=== PATIENT | female | born 1960 | race Caucasian/White ===

== ENCOUNTER → 2019-04-27 | Day surgery (SDC) | payer BC ==
[~2019-04-27] MED LIST: Benzocaine 20% Topical Spray UD MUCMEM ONE; Dextrose 5%-0.45% NaCl 1,000 ML IV SCH; Midazolam 1 MG/ML 2 ML SDV IV ONE; Midazolam 1 MG/ML 2 ML SDV ONE; fentaNYL 100 MCG/2 ML SDV IV ONE; fentaNYL 100 MCG/2 ML SDV ONE
--- NOTE | 2019-04-27 15:41 | OR ---
DATE: 04/27/2019 PREOPERATIVE DIAGNOSES: Nausea, vomiting, postprandial epigastric abdominal pain with diarrhea. POSTOPERATIVE DIAGNOSES: Nausea, vomiting, postprandial epigastric abdominal pain with diarrhea. PROCEDURE: Esophagogastroduodenoscopy with biopsy for H pylori and permanent section. ANESTHESIA: Conscious sedation with IV Versed and fentanyl. SPECIMEN: Gastric prepyloric biopsy. OPERATIVE FINDINGS: Mild gastritis in the prepyloric area. Otherwise, esophagus and duodenum are normal. RECOMMENDATION: Pending on biopsy. PROCEDURE IN DETAIL: After adequate preparation, the gastroscope was inserted into the esophagus. This was passed down to the EG junction. She has some mild eversion of the gastric mucosa, but no true hiatal hernia. No evidence of distal esophagitis or bleeding sites. The scope was advanced into the stomach. Both forward and retroflexed views are done. In the prepyloric area, there are some gastritis appearing streaks extending down to the pylorus. 1 random biopsy was taken for evaluation for H pylori and another 2 by biopsies were done for permanent section. The scope was advanced through the pylorus, the duodenum in the first and second parts normal. Air was suctioned from the stomach, and the scope removed. [facility] /[id number]
--- NOTE | 2019-04-27 16:33 | OR ---
DATE: 04/27/2019 PREOPERATIVE DIAGNOSIS: Chronic diarrhea. POSTOPERATIVE DIAGNOSIS: Chronic diarrhea. PROCEDURE PERFORMED: Total colonoscopy with random biopsy. ANESTHESIA: Conscious sedation with IV Versed and fentanyl. SPECIMEN: Biopsy of cecum, transverse colon, sigmoid colon, and rectum. OPERATIVE FINDINGS: Normal colonoscopy. INDICATION FOR PROCEDURE: This 58-year-old female has the postprandial abdominal pain and nausea and vomiting. She also has chronic diarrhea and states she has watery diarrhea. PROCEDURE IN DETAIL: After adequate preparation, a colonoscope was inserted into the rectum this was easily passed all the way to the cecum. Confirmation of the cecum was made by visualization of the ileocecal valve and palpation in the right lower quadrant. The bowel prep was excellent. On withdrawal of the scope, no abnormalities were noted. One biopsy each was taken in the cecum, mid transverse colon, mid sigmoid, and mid rectum. Air was suctioned from the colon and the scope removed. [facility] /[id number]
== END ==
LOC: DL.ENDO 08:30
PROVIDERS: ATTEND Surgery
DX: K52.9 Noninfective gastroenteritis and colitis, unspecified (principal); K31.89 Other diseases of stomach and duodenum; K21.9 Gastro-esophageal reflux disease without esophagitis
CPT/HCPCS: 43239; 45380; 87077; A9270; J2250; J3010; J7042

== ENCOUNTER 2020-09-22 04:08 | Emergency (ER) | payer MEDICARE, OTHER ==
[2020-09-21 23:29] LABS: ANION GAP 15.8 mEq/L (7-13); CHLORIDE,CL 100 mmol/L (98-107); SODIUM,NA 137 mmol/L (136-145)
--- NOTE | 2020-09-21 23:42 | EDM.PDOC ---
"ED HPI GENERAL MEDICAL PROBLEM - General Chief Complaint: Abdominal Pain Stated Complaint: BY AMBULANCE Time Seen by Provider: 09/21/20 23:30 Source of Information: Reports: Patient History Limitations: Reports: No Limitations - History of Present Illness INITIAL COMMENTS - FREE TEXT/NARRATIVE: This 60 yo female patient was brought to the ED by [facility] due to abdominal pain and nausea/vomiting. 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 The patient reports her pain increased today and she started to have nausea and vomiting. 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: Other Medication(s) (Fentanyl by ems) - Related Data Allergies Allergy/AdvReac Type Severity Reaction Status Date / Time amoxicillin [Amoxicillin] Allergy Intermediate Hives Verified 04/27/19 08:51 morphine Allergy Intermediate UNKNOWN Verified 04/27/19 08:51 ampicillin Allergy Unknown UNKNOWN Verified 04/27/19 08:51 aspirin Allergy Unknown UNKNOWN Verified 04/27/19 08:51 cefaclor [Cefaclor] Allergy Unknown UNKNOWN Verified 04/27/19 08:51 cephalexin [Cephalexin] Allergy Unknown UNKNOWN Verified 04/27/19 08:51 diphenhydramine HCl Allergy Unknown UNKNOWN Verified 04/27/19 08:51 [From Benadryl] erythromycin base Allergy Unknown UNKNOWN Verified 04/27/19 08:51 [Erythromycin Base] ibuprofen Allergy Unknown UNKNOWN Verified 04/27/19 08:51 ketorolac tromethamine Allergy Unknown UNKNOWN Verified 04/27/19 08:51 [From Toradol] nitrofurantoin Allergy Unknown UNKNOWN Verified 04/27/19 08:51 Home Meds: Home Meds Albuterol/Ipratropium [Combivent] 2 puff INH .PRN PRN 07/12/13 [History] Calc/D3/Mag/Zn/Jackie/[place] [Calcium 600 MG Plus Vit D] 1 each PO DAILY 07/12/13 [History] Cyclobenzaprine [Flexeril] 10 mg PO BEDTIME 07/12/13 [History] Dexlansoprazole [Dexilant] 60 mg PO DAILY 07/12/13 [History] Estrogen,Con/M-Progest Acet [Premphase 0.625-5 MG] 1 tab PO DAILY 07/12/13 [History] Hydrocodone/Acetaminophen [[place] 10-325 Tablet] 10 - 325 mg PO BEDTIME PRN 07/12/13 [History] Ketorolac Tromethamine 10 mg PO DAILY 07/12/13 [History] Mometasone Furoate [Asmanex 220 MCG] 1 puff INH DAILY 07/12/13 [History] Promethazine [Phenergan] 50 mg PO DAILY PRN 07/12/13 [History] Vitamin B Complex [B Complex] 1 each PO DAILY 07/12/13 [History] amLODIPine Besylate [Norvasc] 2.5 mg PO BEDTIME 07/12/13 [History] Sennosides/Docusate Sodium [Senna Plus Tablet] 1 each PO DAILY 03/07/19 [History] Escitalopram [Lexapro] 20 mg PO DAILY 04/24/19 [History] Gabapentin [Neurontin] 300 mg PO BEDTIME 04/24/19 [History] L Acidophil/B Lactis/B Longum [Florajen3] 1 tab PO BEDTIME 04/24/19 [History] Magnesium 250 mg PO DAILY 04/24/19 [History] Pseudoephedrine HCl [Sudafed] 30 mg PO DAILY 04/24/19 [History] Rosuvastatin [Crestor] 10 mg PO BEDTIME 04/24/19 [History] Aspirin [Halfprin] 81 mg PO DAILY 04/26/19 [History] Cholecalciferol (Vitamin D3) [Vitamin D3] 400 unit PO ASDIRECTED 04/26/19 [History] Potassium Chloride [Klor-Con 10] 10 meq PO DAILY 04/26/19 [History] Simvastatin [Zocor] 20 mg PO DAILY 04/26/19 [History] Sodium Chloride [Saline Nasal Mist] 1 spray NASBOTH ASDIRECTED 04/26/19 [History] methocarbamoL [Methocarbamol] 750 mg PO ASDIRECTED 04/26/19 [History] Past Medical History HEENT History: Reports: Allergic Rhinitis, Impaired Vision Cardiovascular History: Reports: High Cholesterol, Hypertension Respiratory History: Reports: COPD, Sleep Apnea, SOB Gastrointestinal History: Reports: Chronic Constipation, Chronic Diarrhea, Colon Polyp, Other (See Below) Other Gastrointestinal History: gastroenteritis Genitourinary History: Reports: Urinary Incontinence 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: Musculoskeletal History: Reports: Back Pain, Chronic Neurological History: Reports: Headaches, Chronic, Migraines Psychiatric History: Reports: Depression Endocrine/Metabolic History: Reports: Hypokalemia, Obesity/BMI 30+ Hematologic History: Reports: None Immunologic History: Reports: None Oncologic (Cancer) History: Reports: Other (See Below) Other Oncologic History: mass in abdomin Dermatologic History: Reports: None - Infectious Disease History Infectious Disease History: Reports: Chicken Pox - Past Surgical History Head Surgeries/Procedures: Reports: None HEENT Surgical History: Reports: Naso-Sinus Surgery Cardiovascular Surgical History: Reports: None Respiratory Surgical History: Reports: None GI Surgical History: Reports: Appendectomy, Colon, Colonoscopy Female Surgical History: Reports: Tubal Ligation Endocrine Surgical History: Reports: None Neurological Surgical History: Reports: C-Spine, Lumbar Spine, Other (See Below) Other Neurological Surgeries/Procedures: implanted spinal cord stimulator 2019 Musculoskeletal Surgical History: Reports: Other (See Below) Other Musculoskeletal Surgeries/Procedures:: back surgery. neck surgery. STIMULATOR IMPLANT Dermatological Surgical History: Reports: None Social & Family History - Family History Family Medical History: Unobtainable - Tobacco Use Tobacco Use Status *Q: Current Every Day Tobacco User Years of Tobacco use: 40 Packs/Tins Daily: 0.5 - Caffeine Use Caffeine Use: Reports: Coffee Other Caffeine Use: 1 CUP COFFEE, 2 SODA POPS - Recreational Drug Use Recreational Drug Use: No ED ROS GENERAL - Review of Systems Review Of Systems: Comprehensive ROS is negative, except as noted in HPI. ED EXAM, GI/ABD - Physical Exam Exam: See Below Exam Limited By: No Limitations General Appearance: Alert, WD/WN, Moderate Distress Eyes: Bilateral: Normal Appearance, EOMI Ears: Normal External Exam, Normal Canal, Hearing Grossly Normal, Normal TMs Nose: Normal Inspection, Normal Mucosa, No Blood Throat/Mouth: Normal Inspection, Normal Lips, Normal Teeth, Normal Gums, Normal Oropharynx, Normal Voice, No Airway Compromise Head: Atraumatic, Normocephalic Neck: Normal Inspection, Supple, Non-Tender, Full Range of Motion Respiratory/Chest: No Respiratory Distress, Lungs Clear, Normal Breath Sounds, No Accessory Muscle Use, Chest Non-Tender Cardiovascular: Normal Peripheral Pulses, Regular Rate, Rhythm, No Edema, No Gallop, No JVD, No Murmur, No Rub GI/Abdominal Exam: Guarding, Tender (diffuse) (Female) Exam: Deferred Rectal (Female) Exam: Deferred Back Exam: Normal Inspection, Full Range of Motion, NT Extremities: Normal Inspection, Normal Range of Motion, Non-Tender, Normal Capillary Refill, No Pedal Edema Neurological: Alert, Oriented, CN II-XII Intact, Normal Cognition, Normal Gait, Normal Reflexes, No Motor/Sensory Deficits Psychiatric: Normal Affect, Normal Mood Skin Exam: Warm, Dry, Intact, Normal Color, No Rash Lymphatic: No Adenopathy Course - Vital Signs Last Recorded V/S: Last Vital Signs Temp 98.8 F 09/21/20 23:04 Pulse 95 09/21/20 23:04 Resp 18 09/21/20 23:04 BP 144/60 H 09/21/20 23:04 Pulse Ox - Orders/Labs/Meds Labs: Laboratory Tests 09/21/20 09/21/20 09/21/20 Range/Units 22:45 22:45 22:45 WBC 8.9 (5.0-10.0) 10^3/uL RBC 4.24 (4.2-5.4) 10^6/uL Hgb 12.6 D (12.0-16.0) g/dL Hct 37.5 (37.0-47.0) % MCV 88.4 D (80-100) fL MCH 29.7 (27.0-34.0) pg MCHC 33.6 (33.0-35.0) g/dL Plt Count 574 H D (150-450) 10^3/uL Neut % (Auto) 71.9 (42.2-75.2) % Lymph % (Auto) 19.8 L (20.5-50.1) % [place] % (Auto) 8.1 H (2-8) % Eos % (Auto) 0.1 L (1.0-3.0) % Baso % (Auto) 0.1 (0.0-1.0) % Sodium 137 (136-145) mmol/L Potassium 3.8 (3.5-5.1) mmol/L Chloride 100 (98-107) mmol/L Carbon Dioxide 25 (21-32) mmol/L Anion Gap 15.8 H (7-13) mEq/L BUN 7 (7-18) mg/dL Creatinine 0.79 (0.55-1.02) mg/dL Est Cr Clr Drug Dosing 59.15 mL/min Estimated GFR (MDRD) > 60 BUN/Creatinine Ratio 8.9 (No establ ref range) Glucose 108 H (70-99) mg/dL Lactic Acid 1.1 (0.4-2.0) mmol/L Calcium 8.7 (8.5-10.1) mg/dL Total Bilirubin 0.3 (0.2-1.0) mg/dL AST 16 (15-37) U/L ALT 15 (14-59) U/L Alkaline Phosphatase 90 (46-116) U/L Total Protein 6.7 (6.4-8.2) g/dL Albumin 2.6 L (3.4-5.0) g/dL Globulin 4.1 Albumin/Globulin Ratio 0.63 Amylase 47 (25-115) U/L Lipase 31 L (73-393) U/L Urine Color (YELLOW) Urine Appearance (CLEAR) Urine pH (5.0-9.0) Ur Specific [place] (1.005-1.030) Urine Protein (NEGATIVE) Urine Glucose (UA) (NEGATIVE) Urine Ketones (NEGATIVE) Urine Occult Blood (NEGATIVE) Urine Nitrite (NEGATIVE) Urine Bilirubin (NEGATIVE) Urine Urobilinogen (0.2-1.0) mg/dL Ur Leukocyte Esterase (NEGATIVE) Urine RBC /HPF Urine WBC (0-5/HPF) /HPF Ur Epithelial Cells (NOT SEEN) /HPF Urine Bacteria (0-FEW/HPF) /HPF 09/22/20 Range/Units 01:01 WBC (5.0-10.0) 10^3/uL RBC (4.2-5.4) 10^6/uL Hgb (12.0-16.0) g/dL Hct (37.0-47.0) % MCV (80-100) fL MCH (27.0-34.0) pg MCHC (33.0-35.0) g/dL Plt Count (150-450) 10^3/uL Neut % (Auto) (42.2-75.2) % Lymph % (Auto) (20.5-50.1) % [place] % (Auto) (2-8) % Eos % (Auto) (1.0-3.0) % Baso % (Auto) (0.0-1.0) % Sodium (136-145) mmol/L Potassium (3.5-5.1) mmol/L Chloride (98-107) mmol/L Carbon Dioxide (21-32) mmol/L Anion Gap (7-13) mEq/L BUN (7-18) mg/dL Creatinine (0.55-1.02) mg/dL Est Cr Clr Drug Dosing mL/min Estimated GFR (MDRD) BUN/Creatinine Ratio (No establ ref range) Glucose (70-99) mg/dL Lactic Acid (0.4-2.0) mmol/L Calcium (8.5-10.1) mg/dL Total Bilirubin (0.2-1.0) mg/dL AST (15-37) U/L ALT (14-59) U/L Alkaline Phosphatase (46-116) U/L Total Protein (6.4-8.2) g/dL Albumin (3.4-5.0) g/dL Globulin Albumin/Globulin Ratio Amylase (25-115) U/L Lipase (73-393) U/L Urine Color Yellow (YELLOW) Urine Appearance Clear (CLEAR) Urine pH 7.0 (5.0-9.0) Ur Specific [place] 1.015 (1.005-1.030) Urine Protein Negative (NEGATIVE) Urine Glucose (UA) Negative (NEGATIVE) Urine Ketones Trace H (NEGATIVE) Urine Occult Blood Trace-intact H (NEGATIVE) Urine Nitrite Negative (NEGATIVE) Urine Bilirubin Negative (NEGATIVE) Urine Urobilinogen 0.2 (0.2-1.0) mg/dL Ur Leukocyte Esterase Negative (NEGATIVE) Urine RBC 0-5 /HPF Urine WBC 0-5 (0-5/HPF) /HPF Ur Epithelial Cells Moderate H (NOT SEEN) /HPF Urine Bacteria Moderate H (0-FEW/HPF) /HPF Meds: Medications Discontinued Medications Generic Name Dose Route Start Last Admin Trade Name Freq PRN Reason Stop Dose Admin Hydromorphone HCl 0.5 mg 09/22/20 02:27 09/22/20 02:36 Hydromorphone 0.5 Mg/0.5 Ml Syringe IVPUSH 09/22/20 02:28 0.5 mg ONETIME ONE Administration Iopamidol 100 ml 09/21/20 23:31 09/22/20 00:38 Iopamidol 612 Mg/Ml 100 Ml Bottle IVPUSH 09/21/20 23:32 100 ml ONETIME ONE Administration Metoclopramide HCl 10 mg 09/21/20 23:36 09/21/20 23:48 Metoclopramide 10 Mg/2 Ml Sdv IVPUSH 09/21/20 23:37 10 mg ONETIME ONE Administration - Re-Assessments/Exams Free Text/Narrative Re-Assessment/Exam: 09/22/20 02:46 [facility] [place] [facility] Final Radiology Report Call: [phone] assistance Online chat: [email or web address] Name: JARAD GUO Age: 60Years F Date: 09/22/2020 SSN: -- : [id number] Study: CT ABDOMEN PELVIS W CONT Requesting Physician: Han Braxton Images: [id number] Addl Studies: Provided Clinical History: abdominal pain Contrast: With Contrast Medium: [id number] Contrast Amount: 75 mL Contrast Method: Intravenous (IV) Page 1 of 2 PROCEDURE INFORMATION: Exam: CT Abdomen And Pelvis With Contrast Exam date and time: 09/22/2020 12:54 AM Age: 60 years old Clinical indication: Vomiting; Additional info: Abdominal pain TECHNIQUE: Imaging protocol: Computed tomography of the abdomen and pelvis with contrast. Radiation optimization: All CT scans at this facility use at least one of these dose optimization techniques: automated exposure control; mA and/or kV adjustment per patient size (includes targeted exams where dose is matched to clinical indication); or iterative reconstruction. Contrast material: [id number]; Contrast volume: 75 ml; Contrast route: INTRAVENOUS (IV); COMPARISON: CT Abdomen Pelvis w Cont 09/05/2020 3:31 PM FINDINGS: Liver: Normal. No mass. Gallbladder and bile ducts: Cholelithiasis. Pancreas: Normal. No ductal dilation. Spleen: Normal. No splenomegaly. Adrenal glands: Normal. No mass. Kidneys and ureters: postsurgical changes are noted in the left kidney versus cortical scarring similar to the prior study 2 mm nonobstructing stone lower pole right kidney Stomach and bowel: Severe acute diverticulitis with multiple Irasema diverticular abscesses worse than the prior study. There are several small abscesses now noted the largest in the left lower quadrant anteriorly measuring approximately 2.6 cm. Appendix: No evidence of appendicitis. Intraperitoneal space: Unremarkable. No free air. No significant fluid collection. JARAD GUO | Final Radiology Report CONFIDENTIALITY STATEMENT This report is intended only for use by the referring physician, and only in accordance with law. If you received this in error, call [phone]. Page 2 of 2 Vasculature: Bilateral common iliac artery stents in good position. Lymph nodes: Unremarkable. No enlarged lymph nodes. Urinary bladder: Severe left-sided bladder wall thickening most likely related to the acute diverticulitis in the left lower quadrant. Reproductive: Unremarkable as visualized. Bones/joints: Status post lumbar fusion from L3 through L5 Soft tissues: Unremarkable. IMPRESSION: 1. Cholelithiasis. 3. 2 mm nonobstructing stone lower pole right kidney 4. Bilateral common iliac artery stents in good position. 5. Severe acute diverticulitis with multiple Irasema diverticular abscesses worse than the prior study involving the sigmoid colon. There are several small abscesses now noted, the largest in the left lower quadrant anteriorly measuring approximately 2.6 cm. 6. Severe left-sided bladder wall thickening most likely related to the acute diverticulitis in the left lower quadrant. No evidence for air in the bladder Thank you for allowing us to participate in the care of your patient. Dictated and Authenticated by: eSrafin Geronimo MD 09/22/2020 2:31 AM Central Time ([place] & [place]) Free Text/Narrative Re-Assessment/Exam: 09/22/20 04:04 An initial call was placed to [facility] in [place] for transfer. [facility] advised that they did not have any beds available. A call was placed to Dr. Hilton to possibly admit the patient at [facility] in May until availability in [place]. Dr. Hilton recommended calling [place] for continued evaluation and management. A call was then placed to [facility] in [place]. Dr. Mays accepted the patient for continued evaluation and management. Departure - Departure Time of Disposition: 04:06 Disposition: DC/Tfer to Acute Hospital 02 Condition: Serious Clinical Impression: Acute diverticulitis of intestine - Discharge Information *PRESCRIPTION DRUG MONITORING PROGRAM REVIEWED*: Not Applicable *COPY OF PRESCRIPTION DRUG MONITORING REPORT IN PATIENT CONSUELO: Not Applicable Forms: Interfacility Transfer EMTALA Care Plan Goals: Discussed the patient history, examination, lab and CT results with Dr. Mays. Dr. Mays accepted the patient for continued evaluation and management as an inpatient at [facility]. The patient will be transported by [facility]. Sepsis Event Note (ED) - Evaluation Sepsis Screening Result: No Definite Risk - Focused Exam Vital Signs: Vital Signs Temp Pulse Resp BP 09/21/20 23:04 98.8 F 95 18 144/60 H"
--- NOTE | 2020-09-22 02:32 | CT ---
PROCEDURE INFORMATION: Exam: CT Abdomen And Pelvis With Contrast Exam date and time: 09/22/2020 12:54 AM Age: 60 years old Clinical indication: Vomiting; Additional info: Abdominal pain TECHNIQUE: Imaging protocol: Computed tomography of the abdomen and pelvis with contrast. Radiation optimization: All CT scans at this facility use at least one of these dose optimization techniques: automated exposure control; mA and/or kV adjustment per patient size (includes targeted exams where dose is matched to clinical indication); or iterative reconstruction. Contrast material: [id number]; Contrast volume: 75 ml; Contrast route: INTRAVENOUS (IV); COMPARISON: CT Abdomen Pelvis w Cont 09/05/2020 3:31 PM FINDINGS: Liver: Normal. No mass. Gallbladder and bile ducts: Cholelithiasis. Pancreas: Normal. No ductal dilation. Spleen: Normal. No splenomegaly. Adrenal glands: Normal. No mass. Kidneys and ureters: postsurgical changes are noted in the left kidney versus cortical scarring similar to the prior study 2 mm nonobstructing stone lower pole right kidney Stomach and bowel: Severe acute diverticulitis with multiple Irasema diverticular abscesses worse than the prior study. There are several small abscesses now noted the largest in the left lower quadrant anteriorly measuring approximately 2.6 cm. Appendix: No evidence of appendicitis. Intraperitoneal space: Unremarkable. No free air. No significant fluid collection. Vasculature: Bilateral common iliac artery stents in good position. Lymph nodes: Unremarkable. No enlarged lymph nodes. Urinary bladder: Severe left-sided bladder wall thickening most likely related to the acute diverticulitis in the left lower quadrant. Reproductive: Unremarkable as visualized. Bones/joints: Status post lumbar fusion from L3 through L5 Soft tissues: Unremarkable. IMPRESSION: 1. Cholelithiasis. 3. 2 mm nonobstructing stone lower pole right kidney 4. Bilateral common iliac artery stents in good position. 5. Severe acute diverticulitis with multiple Irasema diverticular abscesses worse than the prior study involving the sigmoid colon. There are several small abscesses now noted, the largest in the left lower quadrant anteriorly measuring approximately 2.6 cm. 6. Severe left-sided bladder wall thickening most likely related to the acute diverticulitis in the left lower quadrant. No evidence for air in the bladder
[2020-09-22] MEDS: HYDROmorphone 0.5 MG/0.5 ML Syringe IVPUSH ONE ×2 (02:36→04:36)
[~2020-09-22 04:08] MED LIST changes: -Benzocaine 20% Topical Spray UD MUCMEM ONE; +Ciprofloxacin in D5W 400 MG in Premix Bag 1 BAG IV ONE; -Dextrose 5%-0.45% NaCl 1,000 ML IV SCH; +Iopamidol 612 MG/ML 100 ML Bottle IVPUSH ONE; +Metoclopramide 10 MG/2 ML SDV IVPUSH ONE; -Midazolam 1 MG/ML 2 ML SDV IV ONE; -Midazolam 1 MG/ML 2 ML SDV ONE; -fentaNYL 100 MCG/2 ML SDV IV ONE; -fentaNYL 100 MCG/2 ML SDV ONE; +metroNIDAZOLE/Normal Saline 100 ML ONE; +metroNIDAZOLE/Normal Saline 500 MG in Premix Bag 100 BAG IV ONE
[2020-09-22] MEDS ORDERED: HYDROmorphone 0.5 MG/0.5 ML Syringe IVPUSH ONE (04:31)
== END 2020-09-22 04:41 ==
LOC: DL.ED 04:08
DX: K57.32 Diverticulitis of large intestine without perforation or abscess without bleeding (principal); E78.00 Pure hypercholesterolemia, unspecified; I10 Essential (primary) hypertension; J44.9 Chronic obstructive pulmonary disease, unspecified; E66.9 Obesity, unspecified; Z72.0 Tobacco use; Z68.22 Body mass index [BMI] 22.0-22.9, adult; Z88.0 Allergy status to penicillin; Z88.1 Allergy status to other antibiotic agents; Z88.5 Allergy status to narcotic agent; Z88.6 Allergy status to analgesic agent; Z79.899 Other long term (current) drug therapy; Z79.82 Long term (current) use of aspirin
CPT/HCPCS: 36415; 74177; 80053; 81001; 82150; 83605; 83690; 85025; 96365; 96368; 96375; 96376; 99284; 99285-25; J0744; J1170; J2765; J3490; Q9967

== ENCOUNTER 2022-06-18 14:48 | Emergency (ER) | payer MEDICARE, OTHER ==
[2022-06-18] MEDS: Ondansetron 4 MG/2 ML SDV IVPUSH ONE ×2 (15:21→16:34)
[2022-06-18] MEDS: Sodium Chloride 0.9% 10 ML Syringe FLUSH PRN (15:21)
[2022-06-18] MEDS: Sodium Chloride 0.9% 1,000 ML IV ONE (15:21)
[2022-06-18] MEDS: HYDROmorphone 0.5 MG/0.5 ML Syringe IVPUSH ONE (15:21)
[2022-06-18 15:56] LABS: ANION GAP 18.2 mEq/L (7-13)
== END 2022-06-18 16:36 | disposition home or self-care (01) ==
LOC: DL.ED 14:48
DX: K52.9 Noninfective gastroenteritis and colitis, unspecified (principal); E78.00 Pure hypercholesterolemia, unspecified; I10 Essential (primary) hypertension; J44.9 Chronic obstructive pulmonary disease, unspecified; I25.10 Atherosclerotic heart disease of native coronary artery without angina pectoris; E66.9 Obesity, unspecified; Z68.26 Body mass index [BMI] 26.0-26.9, adult; Z95.5 Presence of coronary angioplasty implant and graft; Z88.5 Allergy status to narcotic agent; Z79.01 Long term (current) use of anticoagulants; Z79.82 Long term (current) use of aspirin; Z79.51 Long term (current) use of inhaled steroids; Z79.899 Other long term (current) drug therapy; Z88.8 Allergy status to other drugs, medicaments and biological substances; Z88.1 Allergy status to other antibiotic agents; Z88.6 Allergy status to analgesic agent; Z88.0 Allergy status to penicillin
CPT/HCPCS: 36415; 80053; 83605; 83735; 84145; 84443; 84484; 85025; 86140; 93005; 93010; 96361; 96374; 96375; 96376; 99284; 99284-25; J1170; J2405; J3490; J7030

== ENCOUNTER 2022-07-03 01:20 | Emergency (ER) | payer MEDICARE, OTHER ==
[2022-07-03] MEDS ORDERED: Oxymetazoline 0.05% Nasal Spray 30 ML Bottle NAS ONE (01:41)
[2022-07-03] MEDS ORDERED: Silver Nitrate Applicator Each TOP ONE (01:41)
[2022-07-03] MEDS ORDERED: Tranexamic Acid 1,000 MG/10 ML Vial TOP ONE (02:01)
== END 2022-07-03 02:49 | disposition home or self-care (01) ==
LOC: DL.ED 01:20
DX: R04.0 Epistaxis (principal); J44.9 Chronic obstructive pulmonary disease, unspecified; I10 Essential (primary) hypertension; F17.210 Nicotine dependence, cigarettes, uncomplicated; E78.00 Pure hypercholesterolemia, unspecified; E66.9 Obesity, unspecified; Z68.30 Body mass index [BMI] 30.0-30.9, adult; Z88.0 Allergy status to penicillin; Z88.5 Allergy status to narcotic agent; Z88.1 Allergy status to other antibiotic agents; Z88.8 Allergy status to other drugs, medicaments and biological substances; Z79.82 Long term (current) use of aspirin; Z79.01 Long term (current) use of anticoagulants; Z79.899 Other long term (current) drug therapy
CPT/HCPCS: 30903; 99283; A9270; 99213; 99282; J3490

== ENCOUNTER 2023-12-12 15:51 | Emergency (ER) | payer MEDICARE ==
[2023-12-12] MEDS ORDERED: EPINEPHrine Nasal Soln 30 MG/30 ML Bottle NAS ONE (16:20)
[2023-12-12] MEDS: Oxymetazoline 0.05% Nasal Spray 30 ML Bottle NAS ONE (16:31)
== END 2023-12-12 17:33 | disposition home or self-care (01) ==
LOC: DL.ED 15:51
DX: R04.0 Epistaxis (principal); I10 Essential (primary) hypertension; E78.00 Pure hypercholesterolemia, unspecified; J44.9 Chronic obstructive pulmonary disease, unspecified; Z95.5 Presence of coronary angioplasty implant and graft; Z88.5 Allergy status to narcotic agent; Z88.1 Allergy status to other antibiotic agents; Z88.8 Allergy status to other drugs, medicaments and biological substances; Z88.6 Allergy status to analgesic agent; Z79.82 Long term (current) use of aspirin; Z79.899 Other long term (current) drug therapy; Z79.01 Long term (current) use of anticoagulants
CPT/HCPCS: 30901; 99283; A9270-GY

== ENCOUNTER 2024-01-03 14:33 | Emergency (ER) | payer MEDICARE ==
[2024-01-03] MEDS: Oxymetazoline 0.05% Nasal Spray 30 ML Bottle NAS ONE (14:55)
== END 2024-01-03 15:11 | disposition home or self-care (01) ==
LOC: DL.ED 14:33
DX: R04.0 Epistaxis (principal); E78.00 Pure hypercholesterolemia, unspecified; I10 Essential (primary) hypertension; J44.9 Chronic obstructive pulmonary disease, unspecified; E66.9 Obesity, unspecified; Z68.25 Body mass index [BMI] 25.0-25.9, adult; Z90.49 Acquired absence of other specified parts of digestive tract; Z95.5 Presence of coronary angioplasty implant and graft; Z79.82 Long term (current) use of aspirin; Z79.899 Other long term (current) drug therapy; Z88.1 Allergy status to other antibiotic agents; Z88.5 Allergy status to narcotic agent; Z88.0 Allergy status to penicillin; Z88.6 Allergy status to analgesic agent; Z88.8 Allergy status to other drugs, medicaments and biological substances; Z88.9 Allergy status to unspecified drugs, medicaments and biological substances
CPT/HCPCS: 99283; A9270-GY

== ENCOUNTER 2024-02-23 20:44 | Emergency (ER) | payer MEDICARE ==
[2024-02-23 22:22] LABS: BASOPHILS PERCENT AUTO 0.1 % (0.0-1.0); EOSINOPHILS PERCENT AUTO 0.5 % (1.0-3.0); HEMATOCRIT 41.8 % (37.0-47.0); HEMOGLOBIN 13.8 g/dL (12.0-16.0); LYMPHOCYTES PERCENT AUTO 20.1 % (20.5-50.1); MEAN CORPUSCULAR VOLUME 93.9 fL (80-100); MONOCYTES PERCENT AUTO 7.9 % (2-8); NEUTROPHILS PERCENT AUTO 71.4 % (42.2-75.2); PLATELET COUNT,PLT 310 10^3/uL (150-450); RED BLOOD CELL COUNT 4.45 10^6/uL (4.2-5.4); WHITE BLOOD CELL COUNT,WBC 18.7 10^3/uL (5.0-10.0)
[2024-02-23 22:25] LABS: APPEARANCE,URINE SLIGHTLY CLOUDY (CLEAR); BILIRUBIN,URINE NEGATIVE (NEGATIVE); COLOR,URINE YELLOW (YELLOW); GLUCOSE,URINE NEGATIVE (NEGATIVE); KETONES,URINE NEGATIVE (NEGATIVE); LEUKOCYTE ESTERASE,URINE NEGATIVE (NEGATIVE); NITRITE,URINE NEGATIVE (NEGATIVE); OCCULT BLOOD,URINE SMALL (NEGATIVE); PH,URINE 5.5 (5.0-9.0); PROTEIN,URINE NEGATIVE (NEGATIVE); UROBILINOGEN,URINE 0.2 mg/dL (0.2-1.0)
[2024-02-23 22:36] LABS: ALBUMIN 3.2 g/dL (3.4-5.0); ANION GAP 10.9 mEq/L (7-13); BILIRUBIN TOTAL 0.2 mg/dL (0.2-1.0); BUN/CREATININE RATIO 14.3 (No establ ref range); CREATININE 0.77 mg/dL (0.55-1.02); EST CRCL DRUG DOSING (CG) 53.02 mL/min; MAGNESIUM 1.6 mg/dL (1.8-2.4); POTASSIUM,K 3.9 mmol/L (3.5-5.1)
[2024-02-23 22:38] LABS: A/G RATIO 0.84
[2024-02-23 22:45] LABS: BACTERIA,URINE FEW /HPF (0-FEW/HPF); EPITHELIAL CELLS,URINE MODERATE /HPF (NOT SEEN); WBC,URINE 0-5 /HPF (0-5/HPF)
[2024-02-23 22:46] LABS: MUCUS,URINE MANY /LPF (NOT SEEN)
[2024-02-23] MEDS: Ketorolac 30 MG/ML SDV IVPUSH ONE (22:49)
[2024-02-23] MEDS: Sodium Chloride 0.9% 1,000 ML IV ONE (22:50)
[2024-02-23 23:16] LABS: LACTIC ACID 1.8 mmol/L (0.4-2.0)
[2024-02-23] MEDS: methylPREDNISolone Sodium Succinate 125 MG/2 ML SDV IVPUSH ONE (23:27)
[2024-02-23] MEDS: Magnesium Sulfate/Water Premix 2 GM in Premix Bag 1 BAG IV ONE (23:27)
== END 2024-02-24 01:21 | disposition home or self-care (01) ==
LOC: DL.ED 20:44
DX: M54.41 Lumbago with sciatica, right side (principal); J20.9 Acute bronchitis, unspecified; E83.42 Hypomagnesemia; F17.210 Nicotine dependence, cigarettes, uncomplicated; I10 Essential (primary) hypertension; E78.00 Pure hypercholesterolemia, unspecified; J44.9 Chronic obstructive pulmonary disease, unspecified; E66.9 Obesity, unspecified; Z79.01 Long term (current) use of anticoagulants; Z79.82 Long term (current) use of aspirin; Z79.899 Other long term (current) drug therapy; Z88.0 Allergy status to penicillin; Z88.1 Allergy status to other antibiotic agents; Z88.8 Allergy status to other drugs, medicaments and biological substances
CPT/HCPCS: 36415; 71045; 72131; 72192; 80053; 81001; 82550; 83605; 83735; 85025; 93005; 96365; 96366; 96375; 99284-25; J1885; J2919; J3475; J7030

== ENCOUNTER 2024-07-08 12:22 | Emergency (ER) | payer MEDICARE, OTHER ==
[2024-07-08] MEDS: Oxymetazoline 0.05% Nasal Spray 30 ML Bottle NAS ONE (12:52)
[2024-07-08] MEDS: EPINEPHrine 1 MG/ML SDV ONE (12:54)
[2024-07-08] MEDS: Tranexamic Acid 1,000 MG/10 ML Vial TOP ONE (13:03)
[2024-07-08 13:14] LABS: BASOPHILS PERCENT AUTO 0.3 % (0.0-1.0); EOSINOPHILS PERCENT AUTO 0.5 % (1.0-3.0); HEMATOCRIT 44.2 % (37.0-47.0); HEMOGLOBIN 14.5 g/dL (12.0-16.0); LYMPHOCYTES PERCENT AUTO 32.1 % (20.5-50.1); MEAN CORPUSCULAR HEMOGLOBIN 30.1 pg (27.0-34.0); MEAN CORPUSCULAR HGB CONC 32.8 g/dL (33.0-35.0); MEAN CORPUSCULAR VOLUME 91.7 fL (80-100); MONOCYTES PERCENT AUTO 6.2 % (2-8); NEUTROPHILS PERCENT AUTO 60.9 % (42.2-75.2); PLATELET COUNT,PLT 332 10^3/uL (150-450); RED BLOOD CELL COUNT 4.82 10^6/uL (4.2-5.4)
[2024-07-08] MEDS: Acetaminophen/HYDROcodone 325-10 MG Tab PO ONE (13:19)
[2024-07-08] MEDS: EPINEPHrine Nasal Soln 30 MG/30 ML Bottle NAS ONE (13:21)
[2024-07-08 13:33] LABS: PROTHROMBIN TIME 10.7 SEC (9.0-12.0); PTT,PARTIAL THROMBOPLSTIN TIME 28.5 SEC (22.0-34.0)
== END 2024-07-08 13:47 | disposition home or self-care (01) ==
LOC: DL.ED 12:22
DX: R04.0 Epistaxis (principal); I10 Essential (primary) hypertension; E78.00 Pure hypercholesterolemia, unspecified; J44.9 Chronic obstructive pulmonary disease, unspecified; Z90.49 Acquired absence of other specified parts of digestive tract; Z88.1 Allergy status to other antibiotic agents; Z88.5 Allergy status to narcotic agent; Z88.6 Allergy status to analgesic agent; Z88.8 Allergy status to other drugs, medicaments and biological substances; Z79.82 Long term (current) use of aspirin; Z79.01 Long term (current) use of anticoagulants; Z79.51 Long term (current) use of inhaled steroids; Z79.899 Other long term (current) drug therapy
CPT/HCPCS: 36415; 85025; 85610; 85730; 99283; A9270-GY; J0171

== ENCOUNTER 2024-07-12 22:17 | Emergency (ER) | payer MEDICARE ==
[2024-07-12] MEDS: Tranexamic Acid 1,000 MG in Sodium Chloride 0.9% 100 ML IV ONE (23:02)
[2024-07-12] MEDS: Oxymetazoline 0.05% Nasal Spray 30 ML Bottle NAS ONE (23:03)
== END 2024-07-12 23:27 | disposition home or self-care (01) ==
LOC: DL.ED 22:17
DX: R04.0 Epistaxis (principal); I10 Essential (primary) hypertension; E78.00 Pure hypercholesterolemia, unspecified; J44.9 Chronic obstructive pulmonary disease, unspecified; F17.210 Nicotine dependence, cigarettes, uncomplicated; Z86.16 Personal history of COVID-19; Z95.5 Presence of coronary angioplasty implant and graft; Z79.01 Long term (current) use of anticoagulants; Z88.1 Allergy status to other antibiotic agents; Z88.5 Allergy status to narcotic agent; Z88.6 Allergy status to analgesic agent; Z88.8 Allergy status to other drugs, medicaments and biological substances; Z79.899 Other long term (current) drug therapy
CPT/HCPCS: 30901; 96374; 99283; A9270

== ENCOUNTER 2024-11-25 18:09 | Emergency (ER) | payer MEDICARE ==
[2024-11-25 17:34] LABS: BASOPHILS PERCENT AUTO 0.3 % (0.0-1.0); EOSINOPHILS PERCENT AUTO 0.8 % (1.0-3.0); LYMPHOCYTES PERCENT AUTO 50.1 % (20.5-50.1); MONOCYTES PERCENT AUTO 5.3 % (2-8); NEUTROPHILS PERCENT AUTO 43.5 % (42.2-75.2); PLATELET COUNT,PLT 329 10^3/uL (150-450); RED BLOOD CELL COUNT 4.71 10^6/uL (4.2-5.4); WHITE BLOOD CELL COUNT,WBC 10.6 10^3/uL (5.0-10.0)
[2024-11-25] MEDS: fentaNYL 100 MCG/2 ML SDV ONE (17:52)
[2024-11-25] MEDS: fentaNYL 100 MCG/2 ML SDV IVPUSH ONE ×2 (17:52→20:29)
[2024-11-25 17:55] LABS: A/G RATIO 1.0; ALANINE AMINOTRANSFERASE,ALT 16 U/L (14-59); ASPARTATE AMNIOTRANSFERASE,AST 15 U/L (15-37); BILIRUBIN TOTAL 0.4 mg/dL (0.2-1.0); BLOOD UREA NITROGEN,BUN 12 mg/dL (7-18); CARBON DIOXIDE,CO2 28 mmol/L (21-32); CHLORIDE,CL 103 mmol/L (98-107); CREATININE 0.67 mg/dL (0.55-1.02); GLUCOSE RANDOM 112 mg/dL (70-99); POTASSIUM,K 3.3 mmol/L (3.5-5.1); PROTEIN TOTAL,TP 7.1 g/dL (6.4-8.2); SODIUM,NA 139 mmol/L (136-145)
[2024-11-25 17:56] LABS: ESTIMATED GFR 97 mL/min (>=60); ETHANOL BLOOD MEDICAL < 3 mg/dL (0)
[2024-11-25] MEDS: Iopamidol 612 MG/ML 100 ML Bottle IVPUSH ONE (18:07)
[~2024-11-25 18:09] MED LIST changes: -Ciprofloxacin in D5W 400 MG in Premix Bag 1 BAG IV ONE; -Iopamidol 612 MG/ML 100 ML Bottle IVPUSH ONE; -Metoclopramide 10 MG/2 ML SDV IVPUSH ONE; +Sodium Chloride 0.9% 10 ML Syringe FLUSH PRN; -metroNIDAZOLE/Normal Saline 100 ML ONE; -metroNIDAZOLE/Normal Saline 500 MG in Premix Bag 100 BAG IV ONE
[2024-11-25] MEDS: Lidocaine 1% with EPINEPHrine 1:100,000 20 ML MDV INJECT ONE (18:09)
[2024-11-25] MEDS: Take Home: traMADol 50 MG, 4 Tab Pack PO ONE (21:07)
== END 2024-11-25 21:22 | disposition home or self-care (01) ==
LOC: DL.ED 18:09
DX: S42.115A Nondisplaced fracture of body of scapula, left shoulder, initial encounter for closed fracture (principal); S01.01XA Laceration without foreign body of scalp, initial encounter; I10 Essential (primary) hypertension; E78.00 Pure hypercholesterolemia, unspecified; J44.9 Chronic obstructive pulmonary disease, unspecified; Z88.0 Allergy status to penicillin; Z88.6 Allergy status to analgesic agent; Z88.8 Allergy status to other drugs, medicaments and biological substances; Z88.1 Allergy status to other antibiotic agents; Z79.82 Long term (current) use of aspirin; Z79.899 Other long term (current) drug therapy; Z95.5 Presence of coronary angioplasty implant and graft; Z86.16 Personal history of COVID-19; W11.XXXA Fall on and from ladder, initial encounter; Y93.89 Activity, other specified
CPT/HCPCS: 12002; 12014; 36415; 70450; 71260; 72125; 73030; 73130; 74177; 80053; 80307; 83605; 83735; 84484; 85025; 96374; 96375; 99283; 99285; A9270; J2004; J3010; Q9967; J1171

== ENCOUNTER 2024-11-27 17:23 | Inpatient (IN) | payer MEDICARE ==
[2024-11-27 18:28] LABS: BASOPHILS PERCENT AUTO 0.2 % (0.0-1.0); EOSINOPHILS PERCENT AUTO 0.6 % (1.0-3.0); LYMPHOCYTES PERCENT AUTO 30.3 % (20.5-50.1); MONOCYTES PERCENT AUTO 6.8 % (2-8); NEUTROPHILS PERCENT AUTO 62.1 % (42.2-75.2); PLATELET COUNT,PLT 318 10^3/uL (150-450); RED BLOOD CELL COUNT 4.51 10^6/uL (4.2-5.4); WHITE BLOOD CELL COUNT,WBC 9.8 10^3/uL (5.0-10.0)
[2024-11-27 18:52] LABS: ALANINE AMINOTRANSFERASE,ALT 52.0 U/L (14-59); ASPARTATE AMNIOTRANSFERASE,AST 42.0 U/L (15-37); BILIRUBIN TOTAL 0.5 mg/dL (0.2-1.0); BLOOD UREA NITROGEN,BUN 14.0 mg/dL (7-18); CARBON DIOXIDE,CO2 30.0 mmol/L (21-32); CHLORIDE,CL 106.0 mmol/L (98-107); CREATININE 0.63 mg/dL (0.55-1.02); EST CRCL DRUG DOSING (CG) 70.12 mL/min; GLUCOSE RANDOM 91.0 mg/dL (70-99); POTASSIUM,K 4.2 mmol/L (3.5-5.1); PROTEIN TOTAL,TP 7.0 g/dL (6.4-8.2); SODIUM,NA 140.0 mmol/L (136-145)
[2024-11-27 19:00] LABS: A/G RATIO 0.89; ESTIMATED GFR 98.0 mL/min (>=60)
[2024-11-27] MEDS: Acetaminophen/HYDROcodone 325-5 MG Tab PO ONE (19:34)
[2024-11-27 19:49] LABS: INR 1.0 (0.9-1.2); PTT,PARTIAL THROMBOPLSTIN TIME 30.1 SEC (22.0-34.0)
[2024-11-27] MEDS: Potassium Chloride 10 MEQ Tab.ER PO ONE (22:21)
[2024-11-28] MEDS: Acetaminophen/HYDROcodone 325-10 MG Tab PO ONE (03:29)
[2024-11-28] MEDS ORDERED: Flumazenil 0.1 MG/ML 5 ML MDV IVPUSH PRN (10:48)
[2024-11-28] MEDS ORDERED: hydrALAZINE 20 MG/ML SDV IVPUSH PRN (11:06)
[2024-11-28] MEDS ORDERED: Metoprolol Tartrate 5 MG/5 ML SDV IVPUSH PRN (11:06)
[2024-11-28] MEDS ORDERED: Magnesium Hydroxide 400 MG/5 ML Susp 30 ML Cup PO PRN (11:07)
[2024-11-28] MEDS ORDERED: Sennosides/Docusate Sodium 50-8.6 MG Tab PO PRN (11:07)
[2024-11-28] MEDS ORDERED: Sodium Chloride 0.9% 10 ML Syringe FLUSH PRN (11:07)
[2024-11-28] MEDS: Dexamethasone 4 MG/ML SDV IVPUSH ONE (11:43)
[2024-11-28] MEDS: Scopalamine 1mg/3day Transdermal Patch TOP ONE (11:43)
[2024-11-28] MEDS: Acetaminophen/HYDROcodone 325-5 MG Tab PO PRN (16:47)
[2024-11-28] MEDS: Ondansetron 4 MG/2 ML SDV IVPUSH PRN (16:53)
[2024-11-28] MEDS: Sodium Chloride 0.9% 10 ML Syringe FLUSH SCH (20:19)
[2024-11-29] MEDS: Acetaminophen/HYDROcodone 325-10 MG Tab PO PRN (00:13)
[2024-11-29 06:35] LABS: BASOPHILS PERCENT AUTO 0.1 % (0.0-1.0); EOSINOPHILS PERCENT AUTO 0.1 % (1.0-3.0); LYMPHOCYTES PERCENT AUTO 31.6 % (20.5-50.1); MONOCYTES PERCENT AUTO 6.3 % (2-8); NEUTROPHILS PERCENT AUTO 61.9 % (42.2-75.2); PLATELET COUNT,PLT 350 10^3/uL (150-450); RED BLOOD CELL COUNT 4.40 10^6/uL (4.2-5.4); WHITE BLOOD CELL COUNT,WBC 10.8 10^3/uL (5.0-10.0)
[2024-11-29 07:11] LABS: ALANINE AMINOTRANSFERASE,ALT 30.0 U/L (14-59); ASPARTATE AMNIOTRANSFERASE,AST 14.0 U/L (15-37); BILIRUBIN TOTAL 0.3 mg/dL (0.2-1.0); BLOOD UREA NITROGEN,BUN 15.0 mg/dL (7-18); CARBON DIOXIDE,CO2 29.0 mmol/L (21-32); CHLORIDE,CL 106.0 mmol/L (98-107); CREATININE 0.58 mg/dL (0.55-1.02); EST CRCL DRUG DOSING (CG) 76.17 mL/min; GLUCOSE RANDOM 94.0 mg/dL (70-99); POTASSIUM,K 3.7 mmol/L (3.5-5.1); PROTEIN TOTAL,TP 6.6 g/dL (6.4-8.2); SODIUM,NA 143.0 mmol/L (136-145)
[2024-11-29 07:13] LABS: A/G RATIO 0.83; ESTIMATED GFR 100.0 mL/min (>=60)
[2024-11-29] MEDS: Magnesium Sulfate 2 GM/50 mL 2 GM in Premix Bag 1 BAG IV ONE (09:12)
== END 2024-11-30 13:45 | disposition home or self-care (01) | DRG 149 ==
LOC: DL.ED 17:23 → DL.MS 11-28 09:50
PROVIDERS: ADMIT Internal Medicine; ATTEND Internal Medicine
DX: R42 Dizziness and giddiness (principal); S06.340A Traumatic hemorrhage of right cerebrum without loss of consciousness, initial encounter; Z68.1 Body mass index [BMI] 19.9 or less, adult; G43.909 Migraine, unspecified, not intractable, without status migrainosus; E83.42 Hypomagnesemia; I10 Essential (primary) hypertension; J31.0 Chronic rhinitis; G47.33 Obstructive sleep apnea (adult) (pediatric); J44.9 Chronic obstructive pulmonary disease, unspecified; K21.9 Gastro-esophageal reflux disease without esophagitis; Z88.5 Allergy status to narcotic agent; D63.8 Anemia in other chronic diseases classified elsewhere; Z88.1 Allergy status to other antibiotic agents; M51.369 Other intervertebral disc degeneration, lumbar region without mention of lumbar back pain or lower extremity pain; S42.115A Nondisplaced fracture of body of scapula, left shoulder, initial encounter for closed fracture; W11.XXXA Fall on and from ladder, initial encounter; H54.7 Unspecified visual loss; E78.00 Pure hypercholesterolemia, unspecified; K59.09 Other constipation; M54.9 Dorsalgia, unspecified; G89.29 Other chronic pain; F17.200 Nicotine dependence, unspecified, uncomplicated; F32.A Depression, unspecified; E66.9 Obesity, unspecified; Z86.16 Personal history of COVID-19; Z90.49 Acquired absence of other specified parts of digestive tract; Z79.899 Other long term (current) drug therapy; Z98.890 Other specified postprocedural states; Z79.01 Long term (current) use of anticoagulants; Z79.82 Long term (current) use of aspirin; Z88.8 Allergy status to other drugs, medicaments and biological substances; Z95.5 Presence of coronary angioplasty implant and graft; Z86.711 Personal history of pulmonary embolism; Z88.0 Allergy status to penicillin; Z98.51 Tubal ligation status
CPT/HCPCS: 36415; 70450 ×2; 80053; 85025; 85610; 85730; 99285 ×2; A9270 ×13; Q0169; 83735; 97110-GP; 97161-GP; 97165-GO; 97530-GP; J1100; J1171; J2405; J3360; J3475

== ENCOUNTER 2025-01-23 01:55 | Emergency (ER) | payer MEDICARE, OTHER | END 2025-01-23 05:32 | disposition home or self-care (01) | LOC: DL.ED 01:55 | DX: R04.0 Epistaxis (principal); I10 Essential (primary) hypertension; E78.00 Pure hypercholesterolemia, unspecified; J44.9 Chronic obstructive pulmonary disease, unspecified; F17.200 Nicotine dependence, unspecified, uncomplicated; Z88.0 Allergy status to penicillin; Z88.1 Allergy status to other antibiotic agents; Z88.6 Allergy status to analgesic agent; Z88.5 Allergy status to narcotic agent; Z88.8 Allergy status to other drugs, medicaments and biological substances; Z79.01 Long term (current) use of anticoagulants; Z79.899 Other long term (current) drug therapy; Z86.16 Personal history of COVID-19 | CPT/HCPCS: 99283; A9270 ==